=== PATIENT | female | born 1965 | race Caucasian/White ===

== ENCOUNTER 2019-12-28 08:12 | Outpatient (CLI) | payer BC, SELFPAY ==
--- NOTE | ~2019-12-28 | CT_ITS ---
EXAMINATION: CT soft tissue neck w con DATE: 12/28/2019 08:54 INDICATION: Cervical lymphadenopathy. TECHNIQUE: Computed tomography (CT) of the neck was performed with 75 mL Omnipaque-350 intravenous co ntrast. Automated exposure control and iterative reconstruction technique were employed. The dose-alla gth product was 509.85 mGy-cm. COMPARISON: None FINDINGS: Mild thyromegaly. Submandibular and parotid glands are symmetric. There are scattered normal-sized l ymph nodes in the neck, no pathologically enlarged lymphadenopathy. No masses identified. The vascu lature is patent. Left vertebral artery is dominant with diminutive right vertebral artery. Orbits ar e unremarkable. Moderate mucosal thickening in the bilateral ethmoid and maxillary sinuses with mild mucosal thickening in the right frontal and bilateral sphenoid sinuses. Mastoid air cells, middle ear cavities and visualized airway and apices of lungs are clear. Superior mediastinum is unremarkable. Mild cervical spondylosis. IMPRESSION: 1. No abnormal masses or pathologically enlarged cervical lymphadenopathy. 2. Mild thyromegaly. 3. Sinus disease. Reviewed, dictated and finalized at location A.
[2019-12-28 08:46] LABS: Estimated Glomerular Filt Rate > 60
== END 2019-12-28 08:13 | disposition home or self-care (01) ==
PROVIDERS: PCP Physician Assistant; Visit Provider Physician Assistant
DX: R59.0 Localized enlarged lymph nodes (principal); E04.9 Nontoxic goiter, unspecified; J32.9 Chronic sinusitis, unspecified
CPT/HCPCS: 36415; 70491; Q9967

== ENCOUNTER 2020-01-08 12:47 | Outpatient (CLI) | payer BC, SELFPAY ==
--- NOTE | ~2020-01-08 | US_ITS ---
EXAMINATION: US thyroid EXAM DATE: 01/08/2020 13:21 INDICATION: Goiter. TECHNIQUE: Multiple grayscale and Doppler images of the thyroid were obtained (by a technologist who performed the scan) and subsequently reviewed. Individual nodules and recommendations may be reporte d in accordance with TI-RADS system as designated by the 2017 ACR White Paper TI-RADS committee. Shad elation is made to neck CT 12/28/2019. FINDINGS: The right thyroid lobe measures 4.7 x 2.1 x 2.2 cm, the left measuring 4.5 x 2.0 x 2.0 cm. Diffusely heterogeneous thyroid echogenicity which is also hypervascular. Largest discrete nodule is 8 mm in di ameter, no biopsy indicated. Return to clinical follow-up. IMPRESSION: Heterogeneous diffusely hypervascular goiter. Reviewed, dictated and finalized at location A.
== END 2020-01-08 12:48 | disposition home or self-care (01) ==
PROVIDERS: PCP Physician Assistant; Visit Provider Otolaryngology
DX: E04.9 Nontoxic goiter, unspecified (principal)
CPT/HCPCS: 76536

== ENCOUNTER 2023-04-03 11:44 | Emergency (ER) | payer BC, SELFPAY ==
--- NOTE | 2023-04-03 11:58 | ED.NECK ---
HPI - Neck Pain/Injury General Chief Complaint: Neck Pain/Injury Stated Complaint: lymph nodes swollen Source: patient History of Present Illness HPI Narrative: 57 yo F presents to urgent care with complaints of right sided neck lymph node tenderness and swelling since Tuesday. Pt states she first noticed it on Tuesday and states she noticed it was more swollen yesterday. Pt denies any fevers, chills, ear pain, sore throat, congestion, runny nose, trouble swallowing or breathing. Pt has been taking Cipro for a UTI for the last 6.5 days. Pt states her last dose is supposed to be tomorrow. Related Data Home Medications Medication Instructions Recorded Confirmed dapagliflozin propaned 5 2 tablet PO DAILY 04/03/23 04/03/23 mg-metformin ER 1,000 mg tablet, ext rel 24hr (Xigduo XR) tirzepatide 7.5 mg/0.5 mL 7.5 mg subcut WEEKLY 04/03/23 04/03/23 subcutaneous pen injector (Mounjaro) Allergies Allergy/AdvReac Type Severity Reaction Status Date / Time iodine Allergy Unknown HIVES Verified 04/03/23 11:57 Review of Systems Review of Systems: CONSTITUTIONAL: Denies fever, chills, or sweats. EYES: Denies visual changes, redness, or discharge. ENT: swelling and tenderness to right sided neck lymph nodes CARDIOVASCULAR: Denies chest pain, palpitations, or edema. RESPIRATORY: Denies cough or dyspnea. GASTROINTESTINAL: Denies abdominal pain, nausea, vomiting, or diarrhea. GENITOURINARY: Denies dysuria or hematuria. SKIN: Denies rash or itching. MUSCULOSKELETAL: Denies back pain, joint pain, or myalgia. NEUROLOGIC: Denies headache, numbness, or weakness. Pertinent positives per HPI. PMFSH Comments At the time of my signature, I reviewed and agree with the nursing past medical, surgical, social, and family history. There is no relevant family history pertinent to the patient complaint. Exam Narrative: GENERAL: This is a well-nourished, well-developed patient, in no apparent distress. HEAD: normocephalic, atraumatic. EYES: Sclera clear/white. Vision is grossly intact. EARS: External ears normal, auditory canals clear and without drainage, TMs normal without perforation. Hearing grossly intact. NOSE: External nose normal with no obvious nasal discharge, nares without redness, no rhinorrhea. THROAT: Mucous membranes moist, posterior pharynx not erythremic. Tonsils 2+ bilterally. no exudate noted. NECK: Neck supple, mild tenderness to right cervical lymph nodes. mild lymphadenopathy to right cervical location. CARDIOVASCULAR: Regular rate and rhythm without murmurs, gallops, or rubs. RESPIRATORY: Clear to auscultation. Breath sounds equal bilaterally. No wheezes, rales, or rhonchi. SKIN: warm, intact with no suspicious lesions or rash, good texture and turgor. NEURO: awake, alert, and oriented to person, place and time. There were no obvious focal neurologic abnormalities. Course Course Level of Care: Express Care Visit Vital Signs Vital signs: Vital Signs Temperature 97.6 F 04/03/23 12:06 Pulse Rate 68 04/03/23 12:06 Respiratory Rate 16 04/03/23 12:06 Blood Pressure 133/81 04/03/23 12:06 Pulse Oximetry 100 04/03/23 12:06 Temperature 97.6 F 04/03/23 12:06 Pulse Rate 68 04/03/23 12:06 Respiratory Rate 16 04/03/23 12:06 Blood Pressure 133/81 04/03/23 12:06 Pulse Oximetry 100 04/03/23 12:06 reviewed MDM - Neck Pain/Injury MDM Narrative Medical decision making narrative: After 24 hours on antibiotics throw tooth brush away and start using a new one. Increase your Vitamin C. Do not share drinks. Take Motrin alternating with Tylenol for pain and/or fever alternating every 4 hours. Increase fluids, avoid caffeine. Take a probiotic daily or eat a low sugar yogurt while taking the antibiotic. Follow up with Primary provider if not getting better this week Differential Diagnosis Differential diagnosis: Likely other (strep throat, viral illness, lymphadenop
[2023-04-03 12:06] VITALS: BP 133/81; PULSE 68; RESP 16; TEMP 36.4; O2SAT 100
== END 2023-04-03 12:28 | disposition home or self-care (01) ==
PROVIDERS: Emergency Provider Nurse Practitioner Family; PCP Physician Assistant
DX: J02.0 Streptococcal pharyngitis (principal); E11.9 Type 2 diabetes mellitus without complications
CPT/HCPCS: 87880; 99213; G0463

== ENCOUNTER 2023-11-02 14:11 | Emergency (ER) | payer BC, SELFPAY ==
--- NOTE | ~2023-11-02 | XR_ITS ---
EXAMINATION: XR thoracic spine 2V DATE: 11/02/2023 14:47 INDICATION: Back pain. Fall. TECHNIQUE: 2 views of thoracic spine were obtained. COMPARISON: None. FINDINGS: There is 4 degrees levocurvature of thoracic spine. There is mildly decreased disc height a t multiple levels in mid and lower thoracic spine. There are endplate osteophytes at most levels. Umair gical clips in the right upper quadrant are likely from cholecystectomy. IMPRESSION: 1. Mild thoracic spondylosis. Reviewed, dictated and finalized at location A. 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
--- NOTE | ~2023-11-02 | XR_ITS ---
EXAMINATION: XR lumbar spine 2-3V DATE: 11/02/2023 14:47 INDICATION: Low back pain. Fall. TECHNIQUE: 3 views of lumbar spine were obtained. COMPARISON: None. FINDINGS: S1 is a transitional segment. Vertebral body heights are normal. Intervertebral disc height s are normal. There are endplate osteophytes at most levels. There is multilevel facet joint osteoart hritis, severe in lower lumbar spine. Surgical clips in the right upper quadrant are likely from chol ecystectomy. IMPRESSION: 1. Mild lumbar spondylosis. Reviewed, dictated and finalized at location A. L CLEANER IMPRESSION: 1. Mild lumbar spondylosis.
[2023-11-02 14:19] VITALS: BP 140/84; PULSE 78; RESP 16; TEMP 36; O2SAT 100
--- NOTE | 2023-11-02 14:23 | ED.BACK ---
HPI - Back Pain/Injury General Chief Complaint: Back Pain/Injury Stated Complaint: FALL/BACK PAIN Time Seen by Provider: 11/02/23 14:23 Source: patient Mode of arrival: ambulatory Limitations: no limitations History of Present Illness HPI Narrative: 58 yo F presents with c/o mid and lower back pain for approx. 4 days. Slipped on hard wood stairs while wearing socks and slid down 8 steps on her back. Denies hitting head. Denies neck pain. Has been taking ibuprofen without relief of pain. Pt states back is tight with muscle spasms. Called PCP office for muscle relaxant but was told to come to first to rule out fracture. Pt ambulatory with steady gait. No radiation of pain to LEs. Denies numbness/tingling, weakness. No loss of bowel or bladder. All systems reviewed and negative except as noted above. Related Data Home Medications Medication Instructions Recorded Confirmed dapagliflozin propaned 5 2 tablet PO DAILY 04/03/23 11/02/23 mg-metformin ER 1,000 mg tablet, ext rel 24hr (Xigduo XR) tirzepatide 7.5 mg/0.5 mL 7.5 mg subcut WEEKLY 04/03/23 11/02/23 subcutaneous pen injector (Mounjaro) Allergies Allergy/AdvReac Type Severity Reaction Status Date / Time iodine Allergy Unknown HIVES Verified 11/02/23 14:31 Review of Systems Review of Systems: CONSTITUTIONAL: Denies fever, chills, or sweats. EYES: Denies visual changes, redness, or discharge. ENT: Denies rhinorrhea, congestion, sore throat, or otalgia. CARDIOVASCULAR: Denies chest pain, palpitations, or edema. RESPIRATORY: Denies cough or dyspnea. GASTROINTESTINAL: Denies abdominal pain, nausea, vomiting, or diarrhea. GENITOURINARY: Denies dysuria or hematuria. SKIN: Denies rash or itching. MUSCULOSKELETAL: Reports mid and low back pain. Denies joint pain, or myalgia. NEUROLOGIC: Denies headache, numbness, or weakness. PSYCHIATRIC: Denies anxiety or depression. All other systems reviewed are negative, except as documented in HPI. PMFSH Comments At time of signature, agree with nursing past medical, surgical, social and family history. There is no relevant family history pertinent to the presenting complaint. Exam Narrative: GENERAL: This is a well-nourished, well-developed patient, in no apparent distress. HEAD: normocephalic, atraumatic. EYES: PERRL. Sclera clear/white. Vision is grossly intact. EARS: External ears normal NOSE: External nose normal NECK: Neck supple, non-tender without lymphadenopathy, masses or thyromegaly. CARDIOVASCULAR: Regular rate and rhythm without murmurs, gallops, or rubs. RESPIRATORY: Clear to auscultation. Breath sounds equal bilaterally. No wheezes, rales, or rhonchi. SKIN: warm, Dry, intact with no suspicious lesions or rash, good texture and turgor. NEURO: awake, alert, and oriented to person, place and time. There were no obvious focal neurologic abnormalities. EXTREMITIES: No joint tenderness, effusion, or edema noted. BACK: generalized tenderness to T and L spine with muscle tenderness and spasm Course Course Level of Care: Express Care Visit Vital Signs Vital signs: Vital Signs Temperature 36.0 C L 11/02/23 14:19 Pulse Rate 78 11/02/23 14:19 Respiratory Rate 16 11/02/23 14:19 Blood Pressure 140/84 11/02/23 14:19 Pulse Oximetry 100 11/02/23 14:19 Temperature 36.0 C L 11/02/23 14:19 Pulse Rate 78 11/02/23 14:19 Respiratory Rate 16 11/02/23 14:19 Blood Pressure 140/84 11/02/23 14:19 Pulse Oximetry 100 11/02/23 14:19 Reviewed MDM - Back Pain/Injury MDM Narrative Medical decision making narrative: Patient is aware of diagnosis, understands and agrees to treatment plan. Anticipatory guidance given. Patient agrees to follow-up as directed and is aware of reasons to seek care at the emergency department. Portions of this record may have been created with voice recognition software discussed xray results with pt. neg for fracture. Will treat back pa
== END 2023-11-02 15:14 | disposition home or self-care (01) ==
PROVIDERS: Emergency Provider Nurse Practitioner Family; PCP Physician Assistant
DX: S29.012A Strain of muscle and tendon of back wall of thorax, initial encounter (principal); S39.012A Strain of muscle, fascia and tendon of lower back, initial encounter; W10.9XXA Fall (on) (from) unspecified stairs and steps, initial encounter; E11.9 Type 2 diabetes mellitus without complications
CPT/HCPCS: 72070; 72100; 99213; G0463

== ENCOUNTER 2023-11-10 11:50 | Emergency (ER) | payer BC, SELFPAY ==
--- NOTE | ~2023-11-10 | CT_ITS ---
EXAMINATION: CT abdomen pelvis wo con DATE: 11/10/2023 13:37 INDICATION: Epigastric and left upper quadrant pain TECHNIQUE: Computed tomography (CT) of the abdomen and pelvis was performed without intravenous contr ast. The dose-length product (DLP) was 373.87 mGy-cm. Automated exposure control and iterative recons truction technique were employed. COMPARISON: None FINDINGS: The lung bases are clear. The heart size is normal. Bilateral breast implants are noted. Ch anges of cholecystectomy are noted. Cysts of the liver measure up to 6 mm. The spleen, pancreas, and adrenal glands are normal. The left kidney is unremarkable. There is a 12 mm cyst of the right kidney . No pathologically enlarged abdominal or pelvic lymph nodes are identified. No free intraperitoneal gas or evidence of bowel obstruction. Changes of appendectomy are noted. There is mild lumbar spondyl osis. IMPRESSION: 1. No CT correlate for the patient's symptoms. Reviewed, dictated and finalized at location L. 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
[2023-11-10 11:53] VITALS: BP 143/86; PULSE 92; RESP 16; TEMP 36.3; O2SAT 100
[2023-11-10 12:14] LABS: Basophils Percent Auto 0.2 % (0.2-1.2); Eosinophils Absolute Auto 0.1 K/mm3 (0-0.3); Eosinophils Percent Auto 0.7 % (0-4.4); Hematocrit 47.4 % (37.0-47.0); Hemoglobin 15.8 g/dL (12.0-15.0); Immature Granulocyte Absolute 0.01 K/mm3 (0.00-0.031); Immature Granulocyte Percent A 0.1 % (0-0.5); Lymphocytes Absolute Auto 2.58 K/mm3 (0.9-3.2); Lymphocytes Percent Auto 25.9 % (18.3-44.2); Mean Corpuscular HGB Conc 33.3 g/dl (32-36); Mean Corpuscular Hemoglobin 29.8 pg (26-34); Mean Corpuscular Volume 89.3 fl (80-100); Mean Platelet Volume 9.7 fl (7.4-10.4); Monocytes Absolute Auto 0.7 K/mm3 (0.1-0.6); Monocytes Percent Auto 7.2 % (2.6-8.5); Neutrophils Absolute Auto 6.6 K/mm3 (1.3-6.7); Neutrophils Percent Auto 65.9 % (45.5-73.1); Platelet Count Result 302 k/mm3 (150-375); Red Blood Count 5.31 M/mm3 (4.2-5.4); Red Cell Distribution Width 12.8 % (11.5-14.5)
[2023-11-10 12:24] LABS: Alanine Aminotransferase 31 U/L (6-35); Albumin Level 4.8 g/dL (3.5-5.1); Alkaline Phosphatase 125 U/L (38-126); Anion Gap 12 mmol/L (8-16); Aspartate Amino Transferase 28 U/L (14-36); Bilirubin,Total 1.4 mg/dL (0.2-1.3); Blood Urea Nitrogen 26 mg/dL (7-17); Carbon Dioxide 20 mmol/L (22-30); Chloride 105 mmol/L (98-107); Estimated CRCL calculation 52 ml/min; Estimated Glomerular Filt Rate 57; Glucose 159 mg/dL (65-110); Lipase 55 U/L (23-300); Potassium 3.7 mmol/L (3.4-5.0); Sodium 137 mmol/L (137-145)
[2023-11-10 12:29] LABS: Appearance Urine Cloudy (Clear); Bacteria Urine Rare /hpf; Bilirubin Urine Negative (Negative); Blood Urine Negative (Negative); Color Urine Yellow (Yellow); Glucose Urine UA 3+ mg/dL (Negative); Hyaline Casts Urine Present /lpf; Ketones Urine 1+ mg/dL (Negative); Leukocyte Esterase Ur Trace LEU/UL (Negative); Need Manual Microscopic Reviewed; Nitrate Urine Positive (Negative); Non Pathogenic Casts >20; Protein Urine 1+ mg/dL (Negative); RBC Urine 0-2 /hpf (0-2); Specific Grav Ur 1.027 (1.001-1.035); Squamous Epithelial Cell Urine Moderate /hpf (Few); Urobilinogen Urine 0.2 mg/dL (<2.0); WBC Urine 21-50 /hpf; White Blood Cell Casts Urine Present /lpf
[2023-11-10 12:30] LABS: Add Urine Microscopic? YES
--- NOTE | 2023-11-10 12:35 | PC.NURSE ---
Patient has seen her PCp and was scheduled for an US tomorrow, but states pain has gotten worse today sos he was advised to come to the ED for possible pancreatitis
--- NOTE | 2023-11-10 12:36 | ED.ABDPAIN ---
HPI - Abdominal Pain General Chief Complaint: Abdominal Pain Stated Complaint: ABD PAIN Time Seen by Provider: 11/10/23 12:40 Focused HPI: Domenica is a 58-year-old female patient presenting to the with complaints of abdominal pain and diarrhea for the past 4-5 days. She denies any fever or chills. States she is been having epigastric and left upper quadrant pain. History of appendectomy and cholecystectomy. Was in touch with her primary care provider who was going to order an ultrasound however patient was having constant pain rating it a 7 so the primary care provider told patient to come the ER for labs and CT scan. General: Well-developed, well nourished, in no apparent distress. Head: Normocephalic, atraumatic. Cardio: Regular rate and rhythm, s1 and s2 normal, no murmur appreciated. Resp: Clear to auscultation bilaterally, no rhonchi, rales, wheezing or rubs. Abdomen: Soft, pliable, bowel sounds present in all quadrants, epigastric and left upper quadrant tender to palpation, no organomegly, no CVAT tenderness. Patient screened in triage and initial orders placed. Additional care and disposition to be based upon diagnostic testing and treatment. Related Data Home Medications Medication Instructions Recorded Confirmed dapagliflozin propaned 5 2 tablet PO DAILY 04/03/23 11/02/23 mg-metformin ER 1,000 mg tablet, ext rel 24hr (Xigduo XR) tirzepatide 7.5 mg/0.5 mL 7.5 mg subcut WEEKLY 04/03/23 11/02/23 subcutaneous pen injector (Mounjaro) Allergies Allergy/AdvReac Type Severity Reaction Status Date / Time iodine Allergy Unknown HIVES Verified 11/10/23 12:36 Review of Systems Review of Systems: Pertinent positives per HPI. Patient denies any fever, chills, rash, headache, visual changes, dizziness, cough, runny nose, sore throat, shortness of breath, chest pain, palpitations, nausea, vomiting, constipation, abdominal pain, or any urinary issues. Exam Narrative: General: Well-developed, well nourished, in no apparent distress. Head: Normocephalic, atraumatic. Cardio: Regular rate and rhythm, s1 and s2 normal, no murmur appreciated. Resp: Clear to auscultation bilaterally, no rhonchi, rales, wheezing or rubs. Abdomen: Soft, pliable, bowel sounds present in all quadrants, epigastric and left upper quadrant tender to palpation, no organomegly, no CVAT tenderness. Course Vital Signs Vital signs: Vital Signs Temperature 36.3 C L 11/10/23 11:53 Pulse Rate 92 11/10/23 11:53 Respiratory Rate 16 11/10/23 11:53 Blood Pressure 143/86 H 11/10/23 11:53 Pulse Oximetry 100 11/10/23 11:53 Oxygen Delivery Room Air 11/10/23 11:53 Temperature 36.3 C L 11/10/23 11:53 Pulse Rate 92 11/10/23 11:53 Respiratory Rate 16 11/10/23 11:53 Blood Pressure 143/86 H 11/10/23 11:53 Pulse Oximetry 100 11/10/23 11:53 Oxygen Delivery Room Air 11/10/23 11:53 MDM - Abdominal Pain MDM Narrative Medical decision making narrative: At the time of visit patient is resting comfortably on the exam table. Patient appears to be nontoxic. Labs: CBC shows white blood cell count of 10, H and H of 15.8 and 47.4, platelet count is 302, chemistry shows sodium level 137, potassium of 3.7, chloride 105, carbon dioxide of 20, BUN of 26, creatinine 1, GFR is 57. Glucose is 159 total bili is 1.4, liver function test within normal limits, lipase is 55, urinalysis shows cloudy urine with 1+ protein, 3+ glucose, 1+ ketone, it nitrate positive, trace of leuko esterase with 21-50 white blood cells. Diagnostics: CT abdomen and pelvis without contrast shows no pathology correlation to patient's symptoms Plan: supportive measures were discussed with the patient and they voiced understanding discharge instructions and agrees to treatment plan. Return precautions reviewed Lab Data 11/10/23 12:04 11/10/23 12:04 Labs: Lab Results 11/10/23 Range/Units 12:04
[2023-11-10 14:45] VITALS: BP 137/91; PULSE 95; RESP 18; O2SAT 95
== END 2023-11-10 14:49 | disposition home or self-care (01) ==
PROVIDERS: Student in an Organized Health Care Education/Training Program; Emergency Provider Nurse Practitioner Family
DX: K52.9 Noninfective gastroenteritis and colitis, unspecified (principal); N30.00 Acute cystitis without hematuria
CPT/HCPCS: 36415; 74176; 80053; 81001; 83690; 85025; 87077; 87086; 87088; 87186; 99284

== ENCOUNTER 2025-03-07 15:34 | Emergency (ER) | payer BC, SELFPAY ==
[2025-03-07 15:53] VITALS: BP 119/73; PULSE 88; RESP 18; TEMP 36.4; O2SAT 100
--- NOTE | 2025-03-07 16:18 | ED.UPPEXIN ---
HPI - Extremity Injury (Upper) General Chief Complaint: Extremity Injury, Upper Stated Complaint: L FINGER LACERATION Time Seen by Provider: 03/07/25 16:10 Source: patient and RN notes reviewed Mode of arrival: ambulatory Limitations: no limitations History of Present Illness HPI narrative: Patient presents today with a laceration to the left 2nd finger that was sustained approximately an hour and a half prior to exam when patient was cutting some foam with a brand new X-acto knife. She is not up-to-date on her tetanus vaccine. She applied some Vaseline at home in hopes of getting the bleeding to slow but was unsuccessful. Denies numbness or tingling. Related Data Home Medications ?Medication ?Instructions ?Recorded ?Confirmed ?Last Taken ?Type dapagliflozin propaned 5 2 tablet PO DAILY 04/03/23 11/02/23 Unknown History mg-metformin ER 1,000 mg tablet, ext rel 24hr (Xigduo XR) tirzepatide 7.5 mg/0.5 mL 7.5 mg subcut WEEKLY 04/03/23 11/02/23 Unknown History subcutaneous pen injector (Mounjaro) Allergies Allergy/AdvReac Type Severity Reaction Status Date / Time iodine Allergy Unknown HIVES Verified 03/07/25 15:52 [facility] Past Medical History Medical History (Updated 03/07/25 @ 16:26 by Sharda Levy, [facility], ) Type 2 diabetes mellitus Comments At time of signature, I have reviewed and agree with nursing past medical, surgical, social and family history unless otherwise noted. Please see nursing chart for further information. There is no relevant family history pertinent to the presenting complaint Exam Narrative: GENERAL: Well-appearing, well-nourished, and in no acute distress. HEAD: Normocephalic, atraumatic. EYES: EOMI. No redness or drainage. Conjunctivae normal. ENT: Mucous membranes pink and moist. NECK: Normal AROM. CHEST: No respiratory distress. EXTREMITIES: Normal range of motion. No edema. 0.5cm superficial linear laceration to the palmar aspect of the left second DIP. No active bleeding. Distal sensation intact. Capillary refill normal. Full range of motion against resistance. SKIN: Warm, dry, no rash. Capillary refill normal. Normal skin turgor. NEURO: No focal deficits. Alert and oriented x3. Gait steady. PSYCH: Normal affect. No signs of depression or anxiety. Course Course Level of Care: Express Care Visit Vital Signs Vital signs: Vital Signs Temperature 97.6 F 03/07/25 15:53 Pulse Rate 88 03/07/25 15:53 Respiratory Rate 18 03/07/25 15:53 Blood Pressure 119/73 03/07/25 15:53 Pulse Oximetry 100 03/07/25 15:53 Oxygen Delivery Room Air 03/07/25 15:53 Temperature 97.6 F 03/07/25 15:53 Pulse Rate 88 03/07/25 15:53 Respiratory Rate 18 03/07/25 15:53 Blood Pressure 119/73 03/07/25 15:53 Pulse Oximetry 100 03/07/25 15:53 Oxygen Delivery Room Air 03/07/25 15:53 Reviewed MDM - Extremity Injury (Upper) MDM Narrative Medical decision making narrative: Pleasant 59-year-old female patient presents with laceration to the left 2nd finger just prior to arrival. The laceration is superficial enough that it does not require suture closure. Since it is on a joint, adhesive closure is not considered as well. Wound was flushed and dressed with a Band-Aid and patient is placed in a splint. This immobilization will help scab form. Patient's tetanus shot is updated. Care instructions given. Anticipatory guidance given. Vital signs stable. Differential Diagnosis Differential diagnosis: Likely other (Laceration, abrasion, skin avulsion, tendon laceration) Critical Care Time Critical Care Time Critical Care Time: No Discharge Plan Discharge Clinical Impression: Finger laceration Qualifiers: Encounter type: initial encounter Finger: index finger Damage to nail status: without damage Foreign body presence: without foreign body Laterality: left Qualified Code(s): S61.211A - Laceration without foreign body of left index finger without damage to nail, initial encounter Patient Disposition: Home Condition: Stable Instructions: Laceration (ED) Additional Instructions: Wash with soap and water daily. Do not submerge your hand in standing water such as pools, hot tubs, sinks of water as this can introduce bacteria and cause an infection. Keep covered until scabbed over. Monitor for signs of infection such as redness, swelling, increased pain, or drainage, and notify your doctor if you note any. Take Tylenol for pain if needed. Your tetanus shot has been updated today. Patient Language: Turkmen Prescriptions: No Action dapaglifloz propaned-metformin [Xigduo XR] 5-1,000 mg tablet, IR - ER, biphasic 24hr 2 tablet PO DAILY Mounjaro 7.5 mg/0.5 mL pen injector 7.5 mg SUBCUT WEEKLY cyclobenzaprine 10 mg tablet 10 mg PO Q8H PRN (Reason: muscle spasm) Qty: 30 0RF ibuprofen 800 mg tablet 800 mg PO TID PRN (Reason: pain) Qty: 30 0RF omeprazole 40 mg capsule,delayed release(DR/EC) 40 mg PO DAILY 30 Days Qty: 30 0RF amoxicillin-pot clavulanate 875-125 mg tablet 1 tablet PO Q12H 7 Days Qty: 14 0RF Follow-up/Referrals: Margot,ALEXIS Martin [Primary Care Provider] - Time of Disposition: 16:26
[2025-03-07] MEDS: TETANUS,DIPHTHERIA,AC PERTUSSIS ADULT (0.5 ML) BOOSTRIX IM (16:23)
== END 2025-03-07 16:32 | disposition home or self-care (01) ==
PROVIDERS: Emergency Provider Nurse Practitioner; PCP Physician Assistant
DX: S61.211A Laceration without foreign body of left index finger without damage to nail, initial encounter (principal); W26.0XXA Contact with knife, initial encounter; Z23 Encounter for immunization; E11.9 Type 2 diabetes mellitus without complications; Z79.84 Long term (current) use of oral hypoglycemic drugs; Z79.85 Long-term (current) use of injectable non-insulin antidiabetic drugs
CPT/HCPCS: 29130; 90471; 90715; 99212; G0463